=== PATIENT | female | born 1955 | race Caucasian/White ===

== ENCOUNTER 2020-05-17 04:31 | Inpatient (IN) | payer OTHER ==
[~2020-05-17] VITALS: Ht 170.2 cm; Wt 94.2 kg
[2020-05-17 05:08] LABS: Hematocrit 42.6 % (33.0-51.0); Hemoglobin 14.2 g/dL (11.5-16.0); Mean Corpuscular HGB 31.8 pg (26.0-34.0); Mean Corpuscular HGB Conc 33.3 g/dL (31.5-36.5); Mean Corpuscular Volume 95 fL (80-100); Mean Platelet Volume 11.4 fL (9.1-12.4); Platelet Count 248 K/mm3 (150-400); RDW Coefficient Variation 13.2 % (11.7-14.2); RDW Standard Deviation 46.1 fL (35.1-46.3); Red Blood Cell Count 4.47 M/mm3 (3.80-5.20); White Blood Cell Count 13.11 K/mm3 (4.00-11.30)
[2020-05-17 05:28] LABS: International Normalized Ratio 0.95; Prothrombin Time Results 10.2 Sec (9.7-11.5)
[2020-05-17 05:29] LABS: Alanine Aminotransfer (ALT/SGP 13 U/L (12-78); Albumin/Globulin Ratio 1.1 (0.8-1.8); Alk Phos 90 U/L (50-136); Anion Gap 8 mmol/L (6-16); Aspartate Aminotrans (AST/SGOT 13 U/L (12-37); Bilirubin, Total 0.2 mg/dL (0.1-1.0); Blood Urea Nitrogen 14 mg/dL (8-24); Bun/Creatinine Ratio 18.6 (12.0-20.0); CHOL/HDL RATIO 3.3; CO2, Blood 19 mmol/L (21-32); Calcium, Blood 9.2 mg/dL (8.5-10.1); Chloride, Blood 113 mmol/L (98-108); Cholesterol 165 mg/dL (50-200); Creatinine, Blood 0.75 mg/dL (0.40-1.00); Globulin, Blood 3.5 g/dL (2.2-4.0); Glomerular Filtration Rate >60 (60-); Glucose, Blood 168 mg/dL (70-99); HDL Cholesterol 50 mg/dL (>39); LDL/HDL RATIO 1.6; Low Density Lipoprotein Chol 81 mg/dL (0-110); Magnesium, Blood 1.6 mg/dL (1.6-2.4); Potassium, Blood 3.7 mmol/L (3.5-5.5); Sodium, Blood 140 mmol/L (136-145); Total Protein, Blood 7.5 g/dL (6.4-8.2); Triglycerides 172 mg/dL (30-160); Very Low Density Lipoprot Chol 34 mg/dL (6-32)
[2020-05-17] MEDS ORDERED: PROZAC20 M2 PO (06:28)
[2020-05-17] MEDS ORDERED: NEURONTIN400 M1 PO (06:29)
[2020-05-17] MEDS ORDERED: PROP10 PO (06:31)
[2020-05-17] MEDS ORDERED: LOSARTAN POTASS25 M2 PO (06:32)
[2020-05-17] MEDS ORDERED: LOSA50 PO (06:33)
[2020-05-17] MEDS ORDERED: METFORMIN HCL1000 M5 PO (06:34)
[2020-05-17] MEDS ORDERED: TIZANIDINE HCL2 M4 PO (06:35)
--- NOTE | 2020-05-17 06:50 | NUR ---
PT ARRIVES TO ROOM ICU 9 AT 0615 FROM [employer]. REPORT RECEIVED AT BEDSIDE. PT HAS ONE STENT PLACED IN PROXIMAL RCA. PT ALERT AND ORIENTED. PLEASANT AND COOPERATIVE WITH CARE AND ASSESSMENT. DENIES CHEST PAIN. TR BAND IN PLACE OVER RIGHT RADIAL. 9 ML INFLATION. TEACHING DONE ON STENTING, AND PT HAVING SD. PT INSTRUCTED ON LIMITATION OF RIGHT ARM IN RELATION TO RADIAL ACCESS. WILL REVIEW CHART AND PLAN OF CARE FOR THIS PT.
[2020-05-17 07:10] LABS: Calcium, Ionized (POC) 1.11 mmol/L (1.10-1.46); Chloride (POC) 110 mmol/L (98-108); Creatinine (POC) 0.8 mg/dL (0.6-1.0); Glucose (ISTAT POC) 165 mg/dL (70-99); Hemoglobin (POC) 15.3 g/dL (12.0-16.0); Sodium (POC) 139 mmol/L (135-148); Total CO2 (POC) 19 mmol/L (21-32)
--- NOTE | 2020-05-17 10:31 | NUR ---
ASSUMED CARE AT 0700 PT LAYING IN BED, ALERT AND ORIENTED AND ABLE TO MAKE NEEDS KNOW. PT IS ON ROOM AIR WITH O2 SAT >95%. TR BAND IN PLACE TO RIGHT WRIST WITH 9ML OF AIR. ANTICIPATE TO START REMOVING AIR AFTER BREAKFAST. PT IN SINUS RHYTHM WITH HR 60-70'S. PT NO COMPLAINTS OF NAUSEA, OR CHEST PAIN AND STATES SHE IS "FEELING MUCH BETTER". AFIBRILE. ECHO COMPLETED. SEE ADMIT ASSESSMENT FOR FULL ASSESSMENT.
[2020-05-17] MEDS ORDERED: NAPROXEN500 MG PO (10:39)
[2020-05-17] MEDS ORDERED: GABA400 PO (10:43)
--- NOTE | 2020-05-17 11:12 | NUR ---
DR. ALBARRAN IN TO SEE PT. UPDATED TO PT CURRENT STATUS AND THIS AM EKG REVIEWED. DR. ALBARRAN TO ORDER PT HOME MEDS PER RECONCILED LIST. PT PCU STATUS.
--- NOTE | 2020-05-17 18:07 | NUR ---
END OF SHIFT SUMMARY PT IS ALERT AND ORIENTED AND CAN MAKE NEEDS KNOWN. AFIBRILE. RA O2 SAT >97%. HR 60-70'S. BP STABLE. TR BAND OFF, CLEAR ADHESIVE DRESSING IN PLACE. RT RADIAL SITE NO SIGN OF HEMATOMA OR BLEEDING. PT DENIES ANY CHEST PAIN, DYSPNEA, OR NAUSEA. WILL REPORT TO PM RN WHEN AVIALABLE.
--- NOTE | 2020-05-17 19:30 | NUR ---
ASSUMED CARE OF PT, REPORT RECEIVED. PT RESTING QUIETLY IN BED WITH LIGHTS OFF IN ROOM, IS POSITIONED ON RIGHT SIDE IND. SHE ROUSES EASILY TO MOVEMENT IN ROOM, SHE IS ALERT AND ORIENTED X 4, INQUISITIVE REGARDING PLAN OF CARE AND MEDICATIONS, THESE ARE DISCUSSED AND PLAN TO PROVIDE PT WITH PT EDUCATION HANDOUTS REGARDING STENT, BRILINTA, AND HEART ATTACK. PT DENIES N/V, DENIES CP/PRESSURE, DENIES SOB/DYSPNEA, DOES COMPLAIN OF PAIN WITH BP CUFF INFLATION TO LEFT UPPER ARM, COMPARES IT TO BRUISE TYPE PAIN, SMALL REDDENED AREA IS NOTED THAT IS TOUCH TENDER, WILL PLAN TO OBTAIN BP WITH WRIST CUFF AT [facility] ASSESSMENT FOR PT COMFORT. RIGHT RADIAL ACCESS SITE WITH ARM BOARD IN PLACE, CLEAR DRESSING PRESENT, NO BRUISING, SWELLING, OR BLEEDING UNDER DRESSING, SITE IS SOFT, SINUS BRADYCARDIA IS NOTED ON MONITOR, PRESSURES MAINTAINING STABLE, PT DOES REPORT THAT BP IS ELEVATED FOR HER "THERE'S THREE NUMBERS INSTEAD OF JUST 2 ON THE TOP" SKIN IS PWD, CAP REFILL BRISK, PULSES FULL X 4 EXTREMITIES, SPO2 SENSOR IN PLACE TO RIGHT INDEX FINGER WITH GOOD WAVE FORM, NO EDEMA IS NOTED. LUNGS CLEAR THROUGHOUT, SATS MAINTAINING ON ROOM AIR, NO VISIBLE INCREASED WORK OF BREATHING, PT IS SPEAKING IN FULL SENTENCES. ACTIVE BOWEL TONES X 4, ABD SOFT, NO TENDERNESS WITH LIGHT PALPATION. PT GETS UP TO VOID WITH SBA PER OFFGOING RN, DENIES NEEDS AT THIS TIME, CALL LIGHT IN REACH.
[2020-05-18 03:42] LABS: BASOPHILS ABSOLUTE AUTO 0.08 K/mm3 (0.00-0.23); BASOPHILS PERCENT AUTO 1 % (0-2); EOSINOPHILS ABSOLUTE AUTO 0.44 K/mm3 (0.00-0.68); EOSINOPHILS PERCENT AUTO 5 % (0-6); Hematocrit 38.4 % (33.0-51.0); Hemoglobin 12.6 g/dL (11.5-16.0); IMMATURE GRAN ABSOLUTE AUTO 0.03 K/mm3 (0.00-0.10); IMMATURE GRAN PERCENT AUTO 0 % (0-1); LYMPHOCYTES ABSOLUTE AUTO 1.99 K/mm3 (0.84-5.20); LYMPHOCYTES PERCENT AUTO 22 % (21-46); MONOCYTES ABSOLUTE AUTO 0.74 K/mm3 (0.16-1.47); MONOCYTES PERCENT AUTO 8 % (4-13); Mean Corpuscular HGB 31.8 pg (26.0-34.0); Mean Corpuscular HGB Conc 32.8 g/dL (31.5-36.5); Mean Corpuscular Volume 97 fL (80-100); Mean Platelet Volume 11.5 fL (9.1-12.4); NEUTROPHILS ABSOLUTE AUTO 5.68 K/mm3 (1.96-9.15); NEUTROPHILS PERCENT AUTO 63 % (41-73); Platelet Count 208 K/mm3 (150-400); RDW Coefficient Variation 13.2 % (11.7-14.2); RDW Standard Deviation 47.6 fL (35.1-46.3); Red Blood Cell Count 3.96 M/mm3 (3.80-5.20); White Blood Cell Count 8.96 K/mm3 (4.00-11.30)
[2020-05-18 04:02] LABS: Alanine Aminotransfer (ALT/SGP 17 U/L (12-78); Albumin, Blood 3.3 g/dL (3.4-5.0); Albumin/Globulin Ratio 1.1 (0.8-1.8); Alk Phos 56 U/L (50-136); Anion Gap 4 mmol/L (6-16); Aspartate Aminotrans (AST/SGOT 48 U/L (12-37); Bilirubin, Total 0.4 mg/dL (0.1-1.0); Blood Urea Nitrogen 6 mg/dL (8-24); Bun/Creatinine Ratio 7.3 (12.0-20.0); CO2, Blood 24 mmol/L (21-32); Calcium, Blood 8.4 mg/dL (8.5-10.1); Chloride, Blood 115 mmol/L (98-108); Creatinine, Blood 0.82 mg/dL (0.40-1.00); Globulin, Blood 3.1 g/dL (2.2-4.0); Glomerular Filtration Rate >60 (60-); Glucose, Blood 115 mg/dL (70-99); Potassium, Blood 3.7 mmol/L (3.5-5.5); Sodium, Blood 143 mmol/L (136-145); Total Protein, Blood 6.4 g/dL (6.4-8.2)
--- NOTE | 2020-05-18 05:27 | NUR ---
NO ACUTE CHANGES THIS SHIFT, PT HAS DENIED CP/PRESSURE THROUGHOUT NOC AND STATES THAT SHE ACTUALLY FEELS BETTER THAN SHE HAS FOR A WHILE. DENIES N/V THROUGHOUT NOC, DID INITIALLY REPORT SOME DIZZINESS WITH SITTING HOWEVER THIS HAS NOT PERSISTED AND DID RESOLVE WITH ALLOWING TIME BETWEEN SITTING AT EDGE OF BED AND STANDING. TOLERATES UP TO TOILET WITH SBA FOR SAFETY. HAS CONTINUED TO TURN HERSELF INDEPENDENTLY AND WELL. REMAINS SINUS TO SINUS DARON THROUGHOUT NOC, PRESSURES MAINTAINING STABLE, PULSES CONT FULL X 4 EXTREMITIES. RIGHT RADIAL ACCESS SITE CONTINUES WITHOUT BRUISING, BLEEDING, OR SWELLING AND REMAINS SOFT TO LIGHT PALPATION.
--- NOTE | 2020-05-18 09:19 | NUR ---
ASSUMED CARE AT 0700 PT AWAKE, LAYING IN BED, ALERT AND ORIENTED, AND ABLE TO MAKE NEEDS KNOWN. RT RADIAL SITE NO SIGN OF HEMATOMA OR BLEEDING. TRANSPARENT DRSG C/D/I. PT DENIES CHEST PAIN, DYSPNEA, AND NAUSEA. HR 69. RR 16. BP 121/77. O2 SAT ON RA >95%. PT EAGER TO BE DISCHARGED TODAY. SEE SHIFT ASSESSMENT FOR FULL ASSESSMENT.
--- NOTE | 2020-05-18 10:19 | NUR ---
DR ALBARRAN IN TO SEE PT; PT TO BE DISCHARGED HOME; AWAITING DISCHARGE ORDERS.
[2020-05-18] MEDS ORDERED: ATOR40TA PO (11:00)
[2020-05-18] MEDS ORDERED: ASPI81CH PO (11:00)
[2020-05-18] MEDS ORDERED: ACET325 PO (11:00)
[2020-05-18] MEDS ORDERED: BRILINTA90 M1 PO (11:01)
[2020-05-18] MEDS ORDERED: PANT20 PO (11:01)
[2020-05-18] MEDS ORDERED: TOPROL XL50 M1 PO (11:02)
--- NOTE | 2020-05-18 12:12 | NUR ---
PT GIVEN VERBAL AND WRITTEN DC INFORMATION W CLEAR UNDERSTANDING. RX'S CALLED INTO [facility] PER PT REQUEST. PT KNOWS TO CALL DR ALBARRAN ON WEDNESDAY FOR FOLLOW UP APPOINTMENT. RIGHT WRIST REMAINS STABLE W OPSITE C/D/I. WRIST REMAINS IN IMMOBILIZER. PT TO CALL WITH ANY QUESTIONS OR CONCERNS. PT DC'D HOME AT 1155 TO FAMILY IN STABLE CONDITION.
== END 2020-05-18 12:43 | disposition home or self-care (01) | DRG 247 ==
LOC: ER 04:31 → ICUW 04:45
PROVIDERS: Emergency Medicine; ADMIT Internal Medicine Interventional Cardiology
PROC: 027034Z Dilation of Coronary Artery, One Artery with Drug-eluting Intraluminal Device, Percutaneous Approach (ICD-10-PCS; principal; 2020-05-17)
PROC: B240ZZ3 Ultrasonography of Single Coronary Artery, Intravascular (ICD-10-PCS; 2020-05-17)
DX: I21.19 ST elevation (STEMI) myocardial infarction involving other coronary artery of inferior wall (principal); Q23.1 Congenital insufficiency of aortic valve; F17.210 Nicotine dependence, cigarettes, uncomplicated; E11.9 Type 2 diabetes mellitus without complications; I10 Essential (primary) hypertension; J44.9 Chronic obstructive pulmonary disease, unspecified; F34.1 Dysthymic disorder; I25.10 Atherosclerotic heart disease of native coronary artery without angina pectoris; Z79.84 Long term (current) use of oral hypoglycemic drugs
CPT/HCPCS: 36415; 71045; 76937; 80047; 80053; 80061; 82947; 83735; 84484; 85014; 85025; 85027; 85347; 85610; 85730; 86850; 86900; 86901; 92978; 93005; 93010; 93306; 93458; 96374; 96375; 99152; 99153; 99285-25; A9270; A9270-GY; C1725; C1753; C1769; C1874; C1887; C1894; C9113; C9606; J0461; J1644; J1650; J2250; J2270; J3010; J7030; J7050; Q9967

== ENCOUNTER 2020-06-28 19:54 | Emergency (ER) | payer OTHER ==
[~2020-06-28] VITALS: Ht 170.2 cm; Wt 94.3 kg
[~2020-06-28 19:54] MED LIST: ACET325 PO; ASPI81CH PO; ATOR40TA PO; BRILINTA90 M1 PO; GABA400 PO; LOSA50 PO; LOSARTAN POTASS25 M2 PO; METFORMIN HCL1000 M5 PO; NAPROXEN500 MG PO; NEURONTIN400 M1 PO; PANT20 PO; PROP10 PO; PROZAC20 M2 PO; TIZANIDINE HCL2 M4 PO; TOPROL XL50 M1 PO
[2020-06-28 20:20] LABS: BASOPHILS ABSOLUTE AUTO 0.08 K/mm3 (0.00-0.23); BASOPHILS PERCENT AUTO 1 % (0-2); EOSINOPHILS PERCENT AUTO 4 % (0-6); Hematocrit 37.7 % (33.0-51.0); Hemoglobin 12.4 g/dL (11.5-16.0); IMMATURE GRAN ABSOLUTE AUTO 0.06 K/mm3 (0.00-0.10); IMMATURE GRAN PERCENT AUTO 1 % (0-1); LYMPHOCYTES ABSOLUTE AUTO 1.83 K/mm3 (0.84-5.20); LYMPHOCYTES PERCENT AUTO 19 % (21-46); MONOCYTES ABSOLUTE AUTO 0.86 K/mm3 (0.16-1.47); MONOCYTES PERCENT AUTO 9 % (4-13); Mean Corpuscular HGB 31.2 pg (26.0-34.0); Mean Corpuscular HGB Conc 32.9 g/dL (31.5-36.5); Mean Corpuscular Volume 95 fL (80-100); Mean Platelet Volume 11.4 fL (9.1-12.4); NEUTROPHILS ABSOLUTE AUTO 6.64 K/mm3 (1.96-9.15); NEUTROPHILS PERCENT AUTO 67 % (41-73); Platelet Count 257 K/mm3 (150-400); RDW Coefficient Variation 12.6 % (11.7-14.2); RDW Standard Deviation 43.8 fL (35.1-46.3); Red Blood Cell Count 3.98 M/mm3 (3.80-5.20); White Blood Cell Count 9.87 K/mm3 (4.00-11.30)
[2020-06-28 20:40] LABS: Albumin, Blood 3.6 g/dL (3.4-5.0); Bilirubin, Total 0.4 mg/dL (0.1-1.0); Bun/Creatinine Ratio 14.6 (12.0-20.0); Calcium, Blood 8.5 mg/dL (8.5-10.1); Creatinine, Blood 1.44 mg/dL (0.40-1.00); Globulin, Blood 3.6 g/dL (2.2-4.0); Potassium, Blood 3.5 mmol/L (3.5-5.5); Total Protein, Blood 7.2 g/dL (6.4-8.2); Troponin I 0.044 ng/mL (0.000-0.040)
[2020-06-28 23:46] LABS: Source, Urine Clean Catch
[2020-06-28 23:49] LABS: Bilirubin, Urine Neg (Neg); Blood, Urine 1+ (Neg); Glucose Qualitative, Urine Neg (Neg); Ketones, Urine Neg (Neg); Leukocyte Esterase, Urine 1+ (Neg); Nitrite, Urine Neg (Neg); Protein, Urine 2+ (Neg); Urobilinogen, Urine NORM (Normal)
[2020-06-28 23:56] LABS: Appearance, Urine Clear (Clear); Color, Urine Yellow (P-Yellow)
[2020-06-28 23:58] LABS: Amorphous Light (0-Heavy); Bacteria Few /hpf; Red Blood Cells, Urine 0-2 /hpf (0-2); Squamous Epithelial Cells Rare /hpf (Few)
== END 2020-06-29 00:56 | disposition home or self-care (01) ==
LOC: ER 19:54
PROVIDERS: Emergency Medicine
DX: R55 Syncope and collapse (principal); N17.9 Acute kidney failure, unspecified; E11.9 Type 2 diabetes mellitus without complications; I10 Essential (primary) hypertension; I25.2 Old myocardial infarction; J44.9 Chronic obstructive pulmonary disease, unspecified; K21.9 Gastro-esophageal reflux disease without esophagitis; E78.5 Hyperlipidemia, unspecified; Z91.030 Bee allergy status; F17.210 Nicotine dependence, cigarettes, uncomplicated; Z79.82 Long term (current) use of aspirin; Z79.899 Other long term (current) drug therapy
CPT/HCPCS: 70450; 72125; 80053; 81001; 84484; 85025; 87086; 93005; 93010; 99284-25; A9270; J7120